=== PATIENT | female | born 1980 | race Caucasian/White ===

== ENCOUNTER 2016-07-08 11:40 | Inpatient (IN) | payer BC ==
[2016-07-08] MEDS ORDERED: Penicillin G Potassium 5 MILLUNITS in Sodium Chloride 0.9% 100 ML IV ONE (11:47)
[2016-07-08] MEDS: Oxytocin/Normal Saline 30 UNIT/500 ML BAG IV SCH ×2 (13:36→15:55)
[2016-07-08] MEDS ORDERED: Ondansetron 4 MG/2 ML SDV IV PRN (13:57)
[2016-07-08] MEDS ORDERED: Methylergonovine 0.2 MG/1 ML Amp IM PRN (13:57)
[2016-07-08] MEDS ORDERED: Sodium Chloride 0.9% 10 ML Syringe FLUSH PRN (13:57)
[2016-07-08] MEDS ORDERED: Acetaminophen 325 MG Tab PO PRN (13:57)
[2016-07-08] MEDS ORDERED: Misoprostol 400 MCG (4 X 100 MCG TAB) RECTAL PRN (13:57)
[2016-07-08] MEDS ORDERED: Carboprost Tromethamine 250 MCG/1 ML Amp IM PRN (13:57)
[2016-07-08] MEDS ORDERED: Lactated Ringers 1,000 ML IV SCH (14:00)
--- NOTE | 2016-07-08 14:18 | PCM.DEL ---
L & D Note - General Info Date of Service: 07/08/16 (delivery @ 1333 on 07-08-16) Mother's Due Date: 07/21/16 - Delivery Note Labor: spontaneous Delivery Outcome: Livebirth Delivery Method: Spontaneous Vaginal Delivery Presentation: Right Occiput Anterior (MARIA DOLORES) Nuchal cord: none (wrapped 2/3 way around neck) Prep: povidone-iodine (betadine Anesthesia Type: None Amniotic Fluid Description: Clear Episiotomy Type: None Laceration: none Placenta: intact, expressed Cord: 3 vessels Estimated blood loss: 100 (<100) Resuscitation needed: No [place]: suctioned, bulb syringe, warmed (to mom's chest skin to skin) Provider: Marlen Leone - General Info Date of Service: 07/08/16 Functional Status: Reports: pain controlled - Review of Systems General: Reports: No Symptoms HEENT: Reports: no symptoms Pulmonary: Reports: no symptoms Cardiovascular: Reports: No Symptoms Gastrointestinal: Reports: No symptoms Genitourinary: Reports: no symptoms Musculoskeletal: Reports: no symptoms Skin: Reports: no symptoms Neurological: Reports: No Symptoms Psychiatric: Reports: no symptoms - Patient Data Weight - most recent: 173 lb I&O - last 24 hours: Intake & Output 07/07/16 07/08/16 07/08/16 22:59 06:59 14:59 Intake Total 97 Balance 97 Med Orders - Current: Current Medications Acetaminophen (Tylenol) 650 mg PO Q4H PRN PRN Reason: Pain (Mild 1-3) and fever Carboprost Tromethamine (Hemabate Ds) 250 mcg IM ASDIRECTED PRN PRN Reason: HEMORRHAGE Lactated Ringer's (Ringers, Lactated) 1,000 mls @ 125 mls/hr IV ASDIRECTED EDNA Methylergonovine Maleate (Methergine) 0.2 mg IM ASDIRECTED PRN PRN Reason: Hemorrhage Misoprostol (Cytotec) 800 mcg RECTAL ASDIRECTED PRN PRN Reason: Hemorrhage Ondansetron HCl (Zofran) 4 mg IV Q4H PRN PRN Reason: Nausea/Vomiting Sodium Chloride (Saline Flush) 10 ml FLUSH ASDIRECTED PRN PRN Reason: Keep Vein Open Discontinued Medications Penicillin G Potassium 5 (millunits/ Sodium Chloride) 100 mls @ 200 mls/hr IV ONETIME ONE Stop: 07/08/16 12:16 Last Admin: 07/08/16 12:11 Dose: 200 mls/hr - Exam General: alert, oriented HEENT: Pupils equal, Pupils reactive, EOMI, Mucous membr. moist/pink Neck: supple Lungs: Clear to auscultation, Normal respiratory effort Cardiovascular: Regular Rate, Regular Rhythm Abdomen: bowel sounds present, soft, no tenderness, no distension (Female) Exam: Other (intact perineum after vaginal delivery, sensitive to touch) Back Exam: normal inspection, full range of motion Extremities: no edema Skin: warm, dry, intact Wound/Incisions: healing well Neurological: no new focal deficit Psy/Mental Status: alert, normal affect, normal mood - Problem List Review Problem List Initiated/Reviewed/Updated: Yes - My Orders Last 24 Hours: My Active Orders 07/08/16 13:57 Patient Status [ADT] Routine Communication Order [RC] ASDIRECTED Heart Tones [RC] PER UNIT ROUTINE Notify Provider Vital Signs OB [RC] ASDIRECTED Notify Provider [RC] PRN Up ad Stormy [RC] ASDIRECTED Vital Signs [RC] PER UNIT ROUTINE Acetaminophen [Tylenol] 650 mg PO Q4H PRN Carboprost Tromethamine [Hemabate DS] 250 mcg IM ASDIRECTED PRN Methylergonovine [Methergine] 0.2 mg IM ASDIRECTED PRN Misoprostol [Cytotec] 800 mcg RECTAL ASDIRECTED PRN Ondansetron [Zofran] 4 mg IV Q4H PRN Sodium Chloride 0.9% [Saline Flush] 10 ml FLUSH ASDIRECTED PRN Saline Lock Insert [OM.PC] Routine Resuscitation Status Routine 07/08/16 14:00 Lactated Ringers [Ringers, Lactated] 1,000 ml IV ASDIRECTED - Assessment Assessment:: vaginal delivery 38w1d 35yo WF G5 now [id number] ROM rapid delivery intact perineum 1333 on 07-08-16 viable male [id number] anemia AMA O+ GBS +, received PCN X 1 NST reactive - Plan Plan:: Plan: Routine cares. Likely home tomorrow or Monday. All questions answered. hmb
[2016-07-08] MEDS ORDERED: Simethicone 80 MG Tab.Chew PO PRN (14:19)
[2016-07-08] MEDS ORDERED: Zolpidem 5 MG Tab PO PRN (14:19)
[2016-07-08] MEDS ORDERED: Docusate Sodium 100 MG Cap PO PRN (14:19)
[2016-07-08] MEDS ORDERED: Benzocaine/Menthol 20%-0.5% Spray 56 GM Canister TOP PRN (14:19)
[2016-07-08] MEDS: Ibuprofen 800 MG Tab PO PRN (15:23)
--- NOTE | 2016-07-08 19:28 | HP ---
REASON FOR ADMISSION: Ruptured membranes, advanced cervical dilation, history of rapid deliveries. HISTORY OF PRESENT ILLNESS: This delightful 35-year-old, 5, para 2-0-2- 2 presented to the clinic at 38 and 1/7th week gestation. She had been having some contractions on and off. On examination, she was found to be 5-6 cm dilated, had leaking of fluid, was found to be grossly ruptured and was subsequently 5-6 cm dilated with a vertex presentation. She was subsequently admitted to the hospital for further evaluation, management, and admission for delivery. Due to her group B Strep positive status, was started on penicillin for prophylaxis. course has been otherwise uneventful. She does have advanced maternal age but had declined a quad screen and other genetic evaluation. Please see her notes for her previous OB history. Does have a history of rapid delivery with her last delivery. Blood type is O positive, antibody screen was negative. RPR is nonreactive. Hepatitis B surface antigen negative. Her hemoglobin was 10.9. Her labs are otherwise unremarkable. Ultrasounds have been consistent with her dates and within normal limits showing normal anatomy. Gender is not known to the patient. OB history is noted under records. FAMILY HISTORY: Noncontributory. ALLERGIES: None. CURRENT MEDICATIONS: 1. vitamin. 2. Iron b.i.d. PAST MEDICAL HISTORY: Otherwise unremarkable. SOCIAL HISTORY: . She has 1 daughter and 1 son. 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 Nonsmoker. No history of alcohol or drug use. REVIEW OF SYSTEMS: Otherwise noncontributory. IMMUNIZATIONS: Up-to-date including her Tdap and flu shot. OBJECTIVE INFORMATION: Vital Signs: She is afebrile with stable vital signs. Please see nursing notes for vitals on admission. HEENT: Negative. Lungs: Clear. Heart: Sounds regular. Abdomen: Gravid. Baby is in a vertex presentation by Johan's maneuvers. Cervix is 5.5 to 6 cm on admit, bulging bag of fluid is leaking and ruptured at the clinic with return of a large amount of clear fluid as noted. Vertex presentation. Extremities: 1+ edema in her ankles noted. heart tones were 140s in the clinic. NST on arrival to the hospital was reassuring. She is having irregular contractions on admit, rating them 4/10 on the pain scale. IMPRESSION: 1. A 35-year-old white female, 5, para 2-0-2-2 currently at 38 and 1/7th weeks gestation with ruptured membranes. 2. Advanced cervical dilation at 5.5 to 6 cm dilated. 3. History of rapid labor and delivery. 4. Advanced maternal age. 5. Positive group B strep status. 6. O positive blood type. 7. Rubella immune. 8. History of anemia. FINDINGS: The patient has had a reassuring, reactive NST. Her group B Strep prophylaxis started with penicillin. We will continue to monitor things closely. Anticipate likely vaginal delivery. Pitocin augmentation if required. All of their questions have been answered. She does plan on . Further management pending her course in labor. [facility] /[id number]
[2016-07-09] MEDS: Ibuprofen 800 MG Tab PO PRN ×2 (00:05→08:59)
--- NOTE | 2016-07-09 08:12 | PCM.PNPP ---
- General Info Date of Service: 07/09/16 (PPD # 1 S/P ) Functional Status: Reports: pain controlled, tolerating diet, ambulating, urinating - Review of Systems General: Reports: No Symptoms HEENT: Reports: no symptoms Pulmonary: Reports: no symptoms Cardiovascular: Reports: No Symptoms Gastrointestinal: Reports: No symptoms Genitourinary: Reports: no symptoms Musculoskeletal: Reports: no symptoms Skin: Reports: no symptoms Neurological: Reports: No Symptoms Psychiatric: Reports: no symptoms - General Info Date of Service: 07/09/16 (PPD # 1 S/P ) - Patient Data Vital Signs - most recent: Last Vital Signs Temp 97.7 F 07/08/16 20:00 Pulse 73 07/08/16 20:00 Resp 16 07/08/16 20:00 BP 121/74 07/08/16 20:00 Pulse Ox 99 07/08/16 20:00 Weight - most recent: 173 lb I&O - last 24 hours: Intake & Output 07/08/16 07/09/16 07/09/16 22:59 06:59 14:59 Intake Total 1983 Balance 1983 Med Orders - Current: Current Medications Acetaminophen (Tylenol) 650 mg PO Q4H PRN PRN Reason: Pain (Mild 1-3) and fever Last Admin: 07/09/16 04:20 Dose: 650 mg Benzocaine/Menthol (Dermoplast Pain Relief Wilson) 0 gm TOP Q4H PRN PRN Reason: Perineal comfort measures Carboprost Tromethamine (Hemabate Ds) 250 mcg IM ASDIRECTED PRN PRN Reason: HEMORRHAGE Docusate Sodium (Colace) 100 mg PO BID PRN PRN Reason: Constipation Last Admin: 07/09/16 00:06 Dose: 100 mg Lactated Ringer's (Ringers, Lactated) 1,000 mls @ 125 mls/hr IV ASDIRECTED EDNA Last Admin: 07/08/16 12:05 Dose: 125 mls/hr Oxytocin/Sodium Chloride (Pitocin In Ns 30 Unit/500 Ml) 30 unit in 500 mls @ 500 mls/hr IV TITRATE EDNA; 500 MUNITS/MIN PRN Reason: Protocol Last Titration: 07/08/16 17:20 Dose: 0 mls/hr Ibuprofen (Motrin) 800 mg PO Q8H PRN PRN Reason: Mild Pain or Fever Last Admin: 07/09/16 00:05 Dose: 800 mg Methylergonovine Maleate (Methergine) 0.2 mg IM ASDIRECTED PRN PRN Reason: Hemorrhage Misoprostol (Cytotec) 800 mcg RECTAL ASDIRECTED PRN PRN Reason: Hemorrhage Ondansetron HCl (Zofran) 4 mg IV Q4H PRN PRN Reason: Nausea/Vomiting Prenat Multivit/Pollock/Iron/Folic Ac ( Plus Iron) 1 each PO DAILY EDNA Simethicone (Simethicone) 80 mg PO Q4H PRN PRN Reason: Gas Sodium Chloride (Saline Flush) 10 ml FLUSH ASDIRECTED PRN PRN Reason: Keep Vein Open Discontinued Medications Penicillin G Potassium 5 (millunits/ Sodium Chloride) 100 mls @ 200 mls/hr IV ONETIME ONE Stop: 07/08/16 12:16 Last Admin: 07/08/16 12:11 Dose: 200 mls/hr Zolpidem Tartrate (Ambien) 5 mg PO BEDTIME PRN PRN Reason: Insomnia Stop: 07/08/16 21:01 - Infant Interaction Disposition, : Elsie in Room with Family Infant Interaction: Holding Infant Feeding: Breastfed Infant; Nursed Well Support Person: - Recovery Exam Fundal Tone: Firm Fundal Level: 1 Fingerbreadths Below Umbilicus Fundal Placement: Midline Lochia Amount: Moderate Lochia Color: Rubra/Red Perineum Description: Intact, Minimal Bruising/Swelling, Ecchymotic Episiotomy/Laceration: None Bladder Status: Voiding - Exam General: alert, oriented, cooperative, no acute distress HEENT: Pupils equal, Pupils reactive Neck: supple Lungs: Clear to auscultation, Normal respiratory effort Cardiovascular: Regular Rate, Regular Rhythm, No Murmurs Abdomen: bowel sounds present, soft, no tenderness, no distension Extremities: no edema Skin: warm, dry, intact Neurological: no new focal deficit Psy/Mental Status: alert, normal affect, normal mood - Problem List Review Problem List Initiated/Reviewed/Updated: Yes - Assessment Assessment:: PPD # 1 S/P Normal spontaneous vaginal delivery Doing well Desires to go home - Plan Plan:: Plan: Continue present care Discharge to home when baby is discharged All questions answered. Ibuprofen/Tylenol for discomfort Follow-up next week with Dr. Leone.
[2016-07-09] MEDS ORDERED: Prenatal Multivitamin with Calcium/Folic Acid/Iron Tab PO SCH (09:00)
--- NOTE | 2016-07-09 10:27 | DISCH ---
INDICATION FOR ADMISSION: Ms. Haq is a 35-year-old, 5, para 2-0-2-2 female at 38 and 1/7th weeks gestation who reported to labor and delivery, 5-6 cm dilated with spontaneous rupture of membranes with increasing force and frequency of contractions. She did have advanced maternal age as an issue in her along with being group B strep positive. Other than that, no other concerns. She tolerated her labor quite well. She had a quick labor. Once she got to complete, she had a normal spontaneous vaginal delivery of a viable male infant, weighing 7 pounds, 13 ounces. 21 inches long with scores of 8 at 1 minute, 9 at 5 minutes over an intact perineum. She did receive 1 dose of penicillin G before delivery. No other complications occurred throughout her hospital stay. She tolerated her diet well and ambulated quite well. She had minimal lochia. She was discharged to home on day #1. DISCHARGE INSTRUCTIONS: 1. Discharge to home. 2. Follow up with Dr. Leone next week with and then at 6-week checkup. 3. No douching, tampons, intercourse for 6 weeks. 4. Discharge instructions including activity, followup, medications, diet, and wound care were discussed with the patient. She understands these and is willing to comply with these. 5. Ibuprofen and Tylenol p.r.n. for discomfort. DISCHARGE DIAGNOSES: 1. A 38 and 1/7th week intrauterine . 2. Advanced maternal age. 3. Active labor. 4. Spontaneous rupture of membranes. 5. Group B strep positive. 6. Penicillin G IV given x1 dose. 7. O positive blood type, antibody screen negative. 8. Normal spontaneous vaginal delivery of a viable male infant weighing 7 pounds 13 ounces, 21 inches long with score of 8 at 1 minute, 9 at 5 minutes. [facility] /[id number]
[2016-07-09 19:04] VITALS: BP 127/69
== END 2016-07-09 16:20 | disposition home or self-care (01) | DRG 560 ==
LOC: DL.OBCHECK 11:40 → DL.OB 11:45 → UNDOADMOB 11:45 → OBSVTOIN 13:33 → DL.OB 13:33 → UNDOADMOB 13:57
PROVIDERS: ADMIT Family Medicine; ATTEND Family Medicine
PROC: 10E0XZZ Delivery of Products of Conception, External Approach (ICD-10-PCS; principal; 2016-07-08)
DX: O98.82 Other maternal infectious and parasitic diseases complicating childbirth (principal); O99.02 Anemia complicating childbirth; B95.1 Streptococcus, group B, as the cause of diseases classified elsewhere; D64.9 Anemia, unspecified; Z3A.38 38 weeks gestation of pregnancy; Z37.0 Single live birth
CPT/HCPCS: A9270-GY; J2540; J2590; J7050; J7120

== ENCOUNTER 2024-01-16 06:57 | Day surgery (SDC) | payer BC ==
[~2024-01-16 06:57] MED LIST: Midazolam 1 MG/ML 2 ML SDV IV ONE; Midazolam 1 MG/ML 2 ML SDV ONE; fentaNYL 100 MCG/2 ML SDV IV ONE; fentaNYL 100 MCG/2 ML SDV ONE
[2024-01-16] MEDS: Dextrose 5%-0.45% NaCl 1,000 ML IV SCH (07:28)
[2024-01-16] MEDS: fentaNYL 100 MCG/2 ML SDV IV ONE ×2 (08:05→08:06)
[2024-01-16] MEDS: Midazolam 1 MG/ML 2 ML SDV IV ONE ×5 (08:06→08:12)
[2024-01-16 10:03] VITALS: BP 110/68; PULSE 76
== END 2024-01-16 10:07 | disposition home or self-care (01) ==
LOC: DL.ENDO 06:57
PROVIDERS: ATTEND Internal Medicine Gastroenterology
DX: Z12.11 Encounter for screening for malignant neoplasm of colon (principal); K64.4 Residual hemorrhoidal skin tags
CPT/HCPCS: 45378; 81025; J2250; J3010; J7799